=== PATIENT | male | born 1945 | race Caucasian/White ===

== ENCOUNTER 2023-08-08 13:33 | Inpatient (IN) | payer MEDICARE ==
[2023-08-09] MEDS ORDERED: HYDROcodone/Acetaminophen 10/325 mg Tablet PO PRN (19:28)
[2023-08-09] MEDS ORDERED: Albuterol 200 PUFF (6.7GM INHALER) INH PRN (19:28)
[2023-08-09] MEDS ORDERED: Loperamide HCl 2 MG CAP PO PRN (20:15)
[2023-08-09] MEDS ORDERED: Senokot S 8.6-50 MG TAB PO PRN (20:15)
[2023-08-09] MEDS ORDERED: Bisacodyl 10 MG SUPP PR PRN (20:15)
[2023-08-09] MEDS ORDERED: Ondansetron ODT 4 MG TAB SL PRN (20:15)
[2023-08-09] MEDS ORDERED: Bisacodyl 5 MG TAB PO PRN (20:15)
[2023-08-09] MEDS ORDERED: Acetaminophen 650 MG Suppository PR PRN (20:15)
[2023-08-09] MEDS ORDERED: Ondansetron PF 4 MG/2 ML Vial SLOW IVP PRN (20:15)
[2023-08-09] MEDS ORDERED: Calcium Carbonate 500 MG ChewTAB PO PRN (20:15)
[2023-08-09] MEDS ORDERED: Non-Formulary Item 1 EACH (Lovastatin [Lovastatin] 20 MG Tablet) PO SCH (21:00)
[2023-08-09] MEDS: Montelukast Sodium 10 mg Tablet PO SCH (22:14)
[2023-08-09] MEDS: Fish Oil 1,000 MG CAP PO SCH (22:14)
[2023-08-09] MEDS: Lidocaine 4% Patch TD SCH (22:15)
[2023-08-10] MEDS ORDERED: METFORMIN HCL 750 MG PO SCH (09:00)
[2023-08-10] MEDS ORDERED: Transdermal Patch Removal TOP SCH (09:00)
[2023-08-10] MEDS ORDERED: FLU VACC QS2023(65UP)/MF59C/PF 60 MCG/0.5 ML SYRINGE IM ONE (09:00)
[2023-08-10] MEDS: Fish Oil 1,000 MG CAP PO SCH ×2 (09:09→21:07)
[2023-08-10] MEDS: glipiZIDE 5 MG TAB PO SCH (09:09)
[2023-08-10] MEDS: Cholecalciferol 1,000 UNITS (25 MCG) TAB PO SCH (09:10)
[2023-08-10] MEDS: Tamsulosin HCl 0.4 MG CAP PO SCH (09:10)
[2023-08-10] MEDS: metFORMIN XR 500 MG ER.TAB PO SCH (09:10)
[2023-08-10] MEDS: Losartan Potassium 50 MG TAB PO SCH (09:10)
[2023-08-10] MEDS: Finasteride 5 MG TAB PO SCH (09:10)
[2023-08-10] MEDS: Atorvastatin Calcium 40 MG TAB PO SCH (09:10)
[2023-08-10] MEDS: Mometasone/Formoterol 200/5 60 PUFF INH SCH (09:11)
[2023-08-10] MEDS: HYDROcodone/Acetaminophen 5/325 mg Tablet PO PRN ×2 (14:26→21:06)
[2023-08-10] MEDS: Zolpidem Tartrate 5 MG TAB PO PRN (21:07)
[2023-08-10] MEDS: Montelukast Sodium 10 mg Tablet PO SCH (21:07)
[2023-08-10] MEDS: Lidocaine 4% Patch TD SCH (21:08)
[2023-08-11] MEDS: Mometasone/Formoterol 200/5 60 PUFF INH SCH (08:52)
[2023-08-11] MEDS: Tamsulosin HCl 0.4 MG CAP PO SCH (08:54)
[2023-08-11] MEDS: Losartan Potassium 50 MG TAB PO SCH (08:54)
[2023-08-11] MEDS: metFORMIN XR 500 MG ER.TAB PO SCH (08:54)
[2023-08-11] MEDS: Atorvastatin Calcium 40 MG TAB PO SCH (08:54)
[2023-08-11] MEDS: glipiZIDE 5 MG TAB PO SCH (08:54)
[2023-08-11] MEDS: Finasteride 5 MG TAB PO SCH (08:55)
[2023-08-11] MEDS: Fish Oil 1,000 MG CAP PO SCH ×2 (08:55→21:08)
[2023-08-11] MEDS: Cholecalciferol 1,000 UNITS (25 MCG) TAB PO SCH (08:55)
[2023-08-11] MEDS: Acetaminophen 325 MG TAB PO PRN (18:34)
[2023-08-11] MEDS: Cyclobenzaprine 10 MG TAB PO PRN (21:08)
[2023-08-11] MEDS: Montelukast Sodium 10 mg Tablet PO SCH (21:08)
[2023-08-11] MEDS: Zolpidem Tartrate 5 MG TAB PO PRN (21:08)
[2023-08-12] MEDS: Mometasone/Formoterol 200/5 60 PUFF INH SCH (08:43)
[2023-08-12] MEDS: metFORMIN XR 500 MG ER.TAB PO SCH (08:44)
[2023-08-12] MEDS: glipiZIDE 5 MG TAB PO SCH (08:44)
[2023-08-12] MEDS: Fish Oil 1,000 MG CAP PO SCH ×2 (08:44→20:49)
[2023-08-12] MEDS: Atorvastatin Calcium 40 MG TAB PO SCH (08:45)
[2023-08-12] MEDS: Losartan Potassium 50 MG TAB PO SCH (08:45)
[2023-08-12] MEDS: Cholecalciferol 1,000 UNITS (25 MCG) TAB PO SCH (08:45)
[2023-08-12] MEDS: Finasteride 5 MG TAB PO SCH (08:45)
[2023-08-12] MEDS: Tamsulosin HCl 0.4 MG CAP PO SCH (08:45)
[2023-08-12] MEDS: Montelukast Sodium 10 mg Tablet PO SCH (20:49)
[2023-08-12] MEDS: Cyclobenzaprine 10 MG TAB PO PRN (20:52)
[2023-08-12] MEDS: Zolpidem Tartrate 5 MG TAB PO PRN (20:52)
[2023-08-13] MEDS: Atorvastatin Calcium 40 MG TAB PO SCH ×2 (08:50→21:10)
[2023-08-13] MEDS: metFORMIN XR 500 MG ER.TAB PO SCH (09:23)
[2023-08-13] MEDS: glipiZIDE 5 MG TAB PO SCH (09:23)
[2023-08-13] MEDS: Fish Oil 1,000 MG CAP PO SCH ×2 (09:23→21:10)
[2023-08-13] MEDS: Finasteride 5 MG TAB PO SCH (09:23)
[2023-08-13] MEDS: Tamsulosin HCl 0.4 MG CAP PO SCH (09:23)
[2023-08-13] MEDS: Losartan Potassium 50 MG TAB PO SCH (09:23)
[2023-08-13] MEDS: Cholecalciferol 1,000 UNITS (25 MCG) TAB PO SCH (09:23)
[2023-08-13] MEDS: Mometasone/Formoterol 200/5 60 PUFF INH SCH (09:24)
[2023-08-13] MEDS: Acetaminophen 325 MG TAB PO PRN (11:34)
[2023-08-13] MEDS: HYDROcodone/Acetaminophen 5/325 mg Tablet PO PRN (14:36)
[2023-08-13] MEDS: Acetaminophen 500 MG TAB PO SCH (18:29)
[2023-08-13] MEDS: Montelukast Sodium 10 mg Tablet PO SCH (21:11)
[2023-08-14] MEDS: Acetaminophen 500 MG TAB PO SCH ×4 (00:05→17:28)
[2023-08-14] MEDS: glipiZIDE 5 MG TAB PO SCH (09:41)
[2023-08-14] MEDS: Losartan Potassium 50 MG TAB PO SCH (09:41)
[2023-08-14] MEDS: Cholecalciferol 1,000 UNITS (25 MCG) TAB PO SCH (09:41)
[2023-08-14] MEDS: Tamsulosin HCl 0.4 MG CAP PO SCH (09:41)
[2023-08-14] MEDS: Finasteride 5 MG TAB PO SCH (09:41)
[2023-08-14] MEDS: Fish Oil 1,000 MG CAP PO SCH ×2 (09:41→21:23)
[2023-08-14] MEDS: Mometasone/Formoterol 200/5 60 PUFF INH SCH (09:42)
[2023-08-14] MEDS: metFORMIN XR 500 MG ER.TAB PO SCH ×3 (09:42→21:23)
[2023-08-14] MEDS: Zolpidem Tartrate 5 MG TAB PO PRN (21:22)
[2023-08-14] MEDS: Atorvastatin Calcium 40 MG TAB PO SCH (21:23)
[2023-08-14] MEDS: Montelukast Sodium 10 mg Tablet PO SCH (21:23)
[2023-08-15] MEDS: Acetaminophen 500 MG TAB PO SCH ×5 (00:05→23:59)
[2023-08-15] MEDS: metFORMIN XR 500 MG ER.TAB PO SCH ×2 (08:50→21:24)
[2023-08-15] MEDS: Fish Oil 1,000 MG CAP PO SCH ×2 (08:50→21:23)
[2023-08-15] MEDS: glipiZIDE 5 MG TAB PO SCH (08:50)
[2023-08-15] MEDS: Finasteride 5 MG TAB PO SCH (08:51)
[2023-08-15] MEDS: Cholecalciferol 1,000 UNITS (25 MCG) TAB PO SCH (08:51)
[2023-08-15] MEDS: Losartan Potassium 50 MG TAB PO SCH (08:51)
[2023-08-15] MEDS: Tamsulosin HCl 0.4 MG CAP PO SCH (08:51)
[2023-08-15] MEDS: Mometasone/Formoterol 200/5 60 PUFF INH SCH (08:51)
[2023-08-15 11:21] LABS: Bilirubin Negative (Negative); Blood, Urine Moderate (Negative); Glucose, Urine (Dipstick) 100 mg/dL (Negative); Ketone, Urine Negative (Negative); Leukocyte Large (Negative); Nitrite Positive (Negative); Protein, Urine (Dipstick) 100 mg/dL (Neg-Trace); Urobilinogen 0.2 mg/dL (Less than 2); pH, Urine 5.5 (5.0-9.0)
[2023-08-15 11:25] LABS: Clarity Cloudy (Clear); Specific Gravity, Urine 1.031 (1.002-1.036)
[2023-08-15 11:26] LABS: Bacteria/HPF 2+ HPF (None Seen); CAUTI Indications for Culture Pelvic or flank pain; Squamous Epithelial 0-3 HPF (0-3); WBC/HPF Greater Than 50 HPF (0-3)
[2023-08-15 11:27] LABS: Urine Culture Reflex Yes Yes
[2023-08-15] MEDS: Zolpidem Tartrate 5 MG TAB PO PRN (21:23)
[2023-08-15] MEDS: Atorvastatin Calcium 40 MG TAB PO SCH (21:24)
[2023-08-15] MEDS: Montelukast Sodium 10 mg Tablet PO SCH (21:24)
[2023-08-16] MEDS: Acetaminophen 500 MG TAB PO SCH ×3 (06:08→17:39)
[2023-08-16] MEDS: metFORMIN XR 500 MG ER.TAB PO SCH ×2 (09:09→20:28)
[2023-08-16] MEDS: glipiZIDE 5 MG TAB PO SCH (09:09)
[2023-08-16] MEDS: Fish Oil 1,000 MG CAP PO SCH ×2 (09:09→20:28)
[2023-08-16] MEDS: Tamsulosin HCl 0.4 MG CAP PO SCH (09:10)
[2023-08-16] MEDS: Finasteride 5 MG TAB PO SCH (09:10)
[2023-08-16] MEDS: Cholecalciferol 1,000 UNITS (25 MCG) TAB PO SCH (09:10)
[2023-08-16] MEDS: Losartan Potassium 50 MG TAB PO SCH (09:10)
[2023-08-16] MEDS: Mometasone/Formoterol 200/5 60 PUFF INH SCH (09:18)
[2023-08-16] MEDS: Cyclobenzaprine 10 MG TAB PO PRN ×2 (09:22→22:27)
[2023-08-16] MEDS: Loperamide HCl 2 MG CAP PO PRN (10:17)
[2023-08-16] MEDS: Atorvastatin Calcium 40 MG TAB PO SCH (20:28)
[2023-08-16] MEDS: Montelukast Sodium 10 mg Tablet PO SCH (20:28)
[2023-08-16] MEDS: Zolpidem Tartrate 5 MG TAB PO PRN (22:27)
[2023-08-17] MEDS: Acetaminophen 500 MG TAB PO SCH ×5 (05:35→17:13)
[2023-08-17] MEDS: glipiZIDE 5 MG TAB PO SCH (09:39)
[2023-08-17] MEDS: Losartan Potassium 50 MG TAB PO SCH (09:39)
[2023-08-17] MEDS: Tamsulosin HCl 0.4 MG CAP PO SCH (09:39)
[2023-08-17] MEDS: Fish Oil 1,000 MG CAP PO SCH ×2 (09:39→21:12)
[2023-08-17] MEDS: Cholecalciferol 1,000 UNITS (25 MCG) TAB PO SCH (09:40)
[2023-08-17] MEDS: metFORMIN XR 500 MG ER.TAB PO SCH ×2 (09:40→21:13)
[2023-08-17] MEDS: Finasteride 5 MG TAB PO SCH (09:40)
[2023-08-17] MEDS: Mometasone/Formoterol 200/5 60 PUFF INH SCH (09:57)
[2023-08-17] MEDS: Cyclobenzaprine 10 MG TAB PO PRN (21:12)
[2023-08-17] MEDS: Zolpidem Tartrate 5 MG TAB PO PRN (21:12)
[2023-08-17] MEDS: Montelukast Sodium 10 mg Tablet PO SCH (21:12)
[2023-08-17] MEDS: Atorvastatin Calcium 40 MG TAB PO SCH (21:12)
[2023-08-17] MEDS: Sulfameth/Trimethoprim DS 800-160mg TAB PO SCH (21:13)
[2023-08-17] MEDS ORDERED: Nystatin Powder 15 GM BOT TOP PRN (21:57)
[2023-08-18] MEDS: Acetaminophen 500 MG TAB PO SCH ×4 (06:00→18:00)
[2023-08-18] MEDS: glipiZIDE 5 MG TAB PO SCH (09:50)
[2023-08-18] MEDS: metFORMIN XR 500 MG ER.TAB PO SCH ×2 (09:50→21:25)
[2023-08-18] MEDS: Cholecalciferol 1,000 UNITS (25 MCG) TAB PO SCH (09:50)
[2023-08-18] MEDS: Losartan Potassium 50 MG TAB PO SCH (09:50)
[2023-08-18] MEDS: Finasteride 5 MG TAB PO SCH (09:51)
[2023-08-18] MEDS: Sertraline 25 MG TAB PO SCH (09:51)
[2023-08-18] MEDS: Tamsulosin HCl 0.4 MG CAP PO SCH (09:51)
[2023-08-18] MEDS: Fish Oil 1,000 MG CAP PO SCH ×2 (09:51→21:25)
[2023-08-18] MEDS: Nystatin Powder 15 GM BOT TOP SCH ×2 (09:53→21:31)
[2023-08-18] MEDS: Sulfameth/Trimethoprim DS 800-160mg TAB PO SCH ×2 (09:53→21:25)
[2023-08-18] MEDS: Mometasone/Formoterol 200/5 60 PUFF INH SCH (10:19)
[2023-08-18] MEDS: Montelukast Sodium 10 mg Tablet PO SCH (21:25)
[2023-08-18] MEDS: Cyclobenzaprine 10 MG TAB PO PRN (21:25)
[2023-08-18] MEDS: Atorvastatin Calcium 40 MG TAB PO SCH (21:25)
[2023-08-19] MEDS: Acetaminophen 500 MG TAB PO SCH ×4 (00:25→17:43)
[2023-08-19] MEDS: Fish Oil 1,000 MG CAP PO SCH ×2 (09:58→21:25)
[2023-08-19] MEDS: Saccharomyces boulardii 250 MG CAP PO SCH (09:59)
[2023-08-19] MEDS: glipiZIDE 5 MG TAB PO SCH (09:59)
[2023-08-19] MEDS: metFORMIN XR 500 MG ER.TAB PO SCH ×2 (09:59→21:25)
[2023-08-19] MEDS: Tamsulosin HCl 0.4 MG CAP PO SCH (09:59)
[2023-08-19] MEDS: Cholecalciferol 1,000 UNITS (25 MCG) TAB PO SCH (09:59)
[2023-08-19] MEDS: Sulfameth/Trimethoprim DS 800-160mg TAB PO SCH ×2 (10:00→21:25)
[2023-08-19] MEDS: Finasteride 5 MG TAB PO SCH (10:00)
[2023-08-19] MEDS: Losartan Potassium 50 MG TAB PO SCH (10:00)
[2023-08-19] MEDS: Mometasone/Formoterol 200/5 60 PUFF INH SCH (10:00)
[2023-08-19] MEDS: Sertraline 25 MG TAB PO SCH (10:00)
[2023-08-19] MEDS: Nystatin Powder 15 GM BOT TOP SCH ×2 (10:01→21:31)
[2023-08-19] MEDS: Cyclobenzaprine 10 MG TAB PO PRN (21:25)
[2023-08-19] MEDS: Atorvastatin Calcium 40 MG TAB PO SCH (21:26)
[2023-08-19] MEDS: Montelukast Sodium 10 mg Tablet PO SCH (21:26)
[2023-08-20] MEDS: Acetaminophen 500 MG TAB PO SCH ×4 (05:31→17:27)
[2023-08-20] MEDS: Mometasone/Formoterol 200/5 60 PUFF INH SCH (09:36)
[2023-08-20] MEDS: metFORMIN XR 500 MG ER.TAB PO SCH ×2 (09:37→21:22)
[2023-08-20] MEDS: Fish Oil 1,000 MG CAP PO SCH ×2 (09:37→21:22)
[2023-08-20] MEDS: Saccharomyces boulardii 250 MG CAP PO SCH (09:37)
[2023-08-20] MEDS: Cholecalciferol 1,000 UNITS (25 MCG) TAB PO SCH (09:38)
[2023-08-20] MEDS: Tamsulosin HCl 0.4 MG CAP PO SCH (09:38)
[2023-08-20] MEDS: Sulfameth/Trimethoprim DS 800-160mg TAB PO SCH ×2 (09:38→21:22)
[2023-08-20] MEDS: Losartan Potassium 50 MG TAB PO SCH (09:38)
[2023-08-20] MEDS: Sertraline 25 MG TAB PO SCH (09:38)
[2023-08-20] MEDS: Finasteride 5 MG TAB PO SCH (09:38)
[2023-08-20] MEDS: glipiZIDE 5 MG TAB PO SCH (09:46)
[2023-08-20] MEDS: Nystatin Powder 15 GM BOT TOP SCH ×2 (13:03→21:23)
[2023-08-20] MEDS: Atorvastatin Calcium 40 MG TAB PO SCH (21:22)
[2023-08-20] MEDS: Montelukast Sodium 10 mg Tablet PO SCH (21:22)
[2023-08-20] MEDS: Cyclobenzaprine 10 MG TAB PO PRN (21:24)
[2023-08-20] MEDS: Melatonin 3 MG TAB PO SCH (22:00)
[2023-08-21] MEDS: Acetaminophen 500 MG TAB PO SCH ×4 (06:26→18:39)
[2023-08-21] MEDS: Losartan Potassium 50 MG TAB PO SCH (11:10)
[2023-08-21] MEDS: Finasteride 5 MG TAB PO SCH (11:10)
[2023-08-21] MEDS: Fish Oil 1,000 MG CAP PO SCH ×2 (11:11→21:43)
[2023-08-21] MEDS: glipiZIDE 5 MG TAB PO SCH (11:11)
[2023-08-21] MEDS: metFORMIN XR 500 MG ER.TAB PO SCH ×2 (11:11→21:43)
[2023-08-21] MEDS: Saccharomyces boulardii 250 MG CAP PO SCH (11:12)
[2023-08-21] MEDS: Cholecalciferol 1,000 UNITS (25 MCG) TAB PO SCH (11:12)
[2023-08-21] MEDS: Sulfameth/Trimethoprim DS 800-160mg TAB PO SCH ×2 (11:13→21:42)
[2023-08-21] MEDS: Tamsulosin HCl 0.4 MG CAP PO SCH (11:13)
[2023-08-21] MEDS: Sertraline 25 MG TAB PO SCH (11:13)
[2023-08-21] MEDS: Mometasone/Formoterol 200/5 60 PUFF INH SCH (11:14)
[2023-08-21] MEDS: Nystatin Powder 15 GM BOT TOP SCH ×2 (11:15→21:42)
[2023-08-21] MEDS: Melatonin 3 MG TAB PO SCH (21:44)
[2023-08-21] MEDS: Atorvastatin Calcium 40 MG TAB PO SCH (21:44)
[2023-08-21] MEDS: Montelukast Sodium 10 mg Tablet PO SCH (21:44)
[2023-08-22] MEDS: Acetaminophen 500 MG TAB PO SCH ×5 (00:05→23:47)
[2023-08-22] MEDS: Fish Oil 1,000 MG CAP PO SCH ×2 (10:06→21:15)
[2023-08-22] MEDS: Tamsulosin HCl 0.4 MG CAP PO SCH (10:06)
[2023-08-22] MEDS: metFORMIN XR 500 MG ER.TAB PO SCH ×2 (10:06→21:00)
[2023-08-22] MEDS: Cholecalciferol 1,000 UNITS (25 MCG) TAB PO SCH (10:06)
[2023-08-22] MEDS: Sertraline 25 MG TAB PO SCH (10:06)
[2023-08-22] MEDS: glipiZIDE 5 MG TAB PO SCH (10:06)
[2023-08-22] MEDS: Sulfameth/Trimethoprim DS 800-160mg TAB PO SCH ×2 (10:07→21:16)
[2023-08-22] MEDS: Losartan Potassium 50 MG TAB PO SCH (10:07)
[2023-08-22] MEDS: Saccharomyces boulardii 250 MG CAP PO SCH (10:07)
[2023-08-22] MEDS: Finasteride 5 MG TAB PO SCH (10:07)
[2023-08-22] MEDS: Nystatin Powder 15 GM BOT TOP SCH ×2 (10:08→21:18)
[2023-08-22] MEDS: Mometasone/Formoterol 200/5 60 PUFF INH SCH (10:16)
[2023-08-22] MEDS: Loperamide HCl 2 MG CAP PO PRN (18:04)
[2023-08-22] MEDS: Montelukast Sodium 10 mg Tablet PO SCH (21:16)
[2023-08-22] MEDS: Melatonin 3 MG TAB PO SCH (21:16)
[2023-08-22] MEDS: Atorvastatin Calcium 40 MG TAB PO SCH (21:17)
[2023-08-23] MEDS: Acetaminophen 500 MG TAB PO SCH ×3 (06:01→17:37)
[2023-08-23] MEDS: Mometasone/Formoterol 200/5 60 PUFF INH SCH (08:56)
[2023-08-23] MEDS: metFORMIN XR 500 MG ER.TAB PO SCH ×2 (08:58→21:24)
[2023-08-23] MEDS: Fish Oil 1,000 MG CAP PO SCH ×2 (08:58→21:24)
[2023-08-23] MEDS: glipiZIDE 5 MG TAB PO SCH (08:58)
[2023-08-23] MEDS: Losartan Potassium 50 MG TAB PO SCH (09:00)
[2023-08-23] MEDS: Saccharomyces boulardii 250 MG CAP PO SCH (09:00)
[2023-08-23] MEDS: Sertraline 25 MG TAB PO SCH (09:00)
[2023-08-23] MEDS: Tamsulosin HCl 0.4 MG CAP PO SCH (09:00)
[2023-08-23] MEDS: Finasteride 5 MG TAB PO SCH (09:00)
[2023-08-23] MEDS: Cholecalciferol 1,000 UNITS (25 MCG) TAB PO SCH (09:00)
[2023-08-23] MEDS: Sulfameth/Trimethoprim DS 800-160mg TAB PO SCH (09:00)
[2023-08-23] MEDS: Nystatin Powder 15 GM BOT TOP SCH ×2 (09:01→21:32)
[2023-08-23] MEDS: diphenhydrAMINE 25 MG CAP PO PRN (18:52)
[2023-08-23] MEDS: Montelukast Sodium 10 mg Tablet PO SCH (21:24)
[2023-08-23] MEDS: Atorvastatin Calcium 40 MG TAB PO SCH (21:25)
[2023-08-23] MEDS: Melatonin 3 MG TAB PO SCH (21:25)
[2023-08-24] MEDS: Acetaminophen 500 MG TAB PO SCH ×4 (00:16→18:15)
[2023-08-24] MEDS: diphenhydrAMINE 25 MG CAP PO PRN ×4 (00:16→19:49)
[2023-08-24] MEDS: metFORMIN XR 500 MG ER.TAB PO SCH ×2 (09:17→21:21)
[2023-08-24] MEDS: Fish Oil 1,000 MG CAP PO SCH ×2 (09:17→21:21)
[2023-08-24] MEDS: glipiZIDE 5 MG TAB PO SCH (09:17)
[2023-08-24] MEDS: Sertraline 25 MG TAB PO SCH (09:18)
[2023-08-24] MEDS: Finasteride 5 MG TAB PO SCH (09:18)
[2023-08-24] MEDS: Tamsulosin HCl 0.4 MG CAP PO SCH (09:18)
[2023-08-24] MEDS: Saccharomyces boulardii 250 MG CAP PO SCH (09:18)
[2023-08-24] MEDS: Mometasone/Formoterol 200/5 60 PUFF INH SCH (09:19)
[2023-08-24] MEDS: Losartan Potassium 50 MG TAB PO SCH (09:19)
[2023-08-24] MEDS: Cholecalciferol 1,000 UNITS (25 MCG) TAB PO SCH (09:19)
[2023-08-24] MEDS: Nystatin Powder 15 GM BOT TOP SCH ×2 (09:57→19:49)
[2023-08-24] MEDS: Montelukast Sodium 10 mg Tablet PO SCH (21:22)
[2023-08-24] MEDS: Atorvastatin Calcium 40 MG TAB PO SCH (21:22)
[2023-08-24] MEDS: Melatonin 3 MG TAB PO SCH (21:22)
[2023-08-25] MEDS: Acetaminophen 500 MG TAB PO SCH ×4 (00:04→18:08)
[2023-08-25] MEDS: Mometasone/Formoterol 200/5 60 PUFF INH SCH (08:37)
[2023-08-25] MEDS: metFORMIN XR 500 MG ER.TAB PO SCH ×2 (08:39→21:00)
[2023-08-25] MEDS: glipiZIDE 5 MG TAB PO SCH (08:40)
[2023-08-25] MEDS: Fish Oil 1,000 MG CAP PO SCH ×2 (08:40→21:00)
[2023-08-25] MEDS: Saccharomyces boulardii 250 MG CAP PO SCH (08:42)
[2023-08-25] MEDS: Nystatin Powder 15 GM BOT TOP SCH ×2 (08:42→21:01)
[2023-08-25] MEDS: Cholecalciferol 1,000 UNITS (25 MCG) TAB PO SCH (08:43)
[2023-08-25] MEDS: Sertraline 25 MG TAB PO SCH (08:43)
[2023-08-25] MEDS: Tamsulosin HCl 0.4 MG CAP PO SCH (08:43)
[2023-08-25] MEDS: Losartan Potassium 50 MG TAB PO SCH (08:43)
[2023-08-25] MEDS: Finasteride 5 MG TAB PO SCH (08:43)
[2023-08-25] MEDS: Loperamide HCl 2 MG CAP PO PRN (18:08)
[2023-08-25] MEDS: Montelukast Sodium 10 mg Tablet PO SCH (21:01)
[2023-08-25] MEDS: Melatonin 3 MG TAB PO SCH (21:01)
[2023-08-25] MEDS: Atorvastatin Calcium 40 MG TAB PO SCH (21:01)
[2023-08-26] MEDS: Acetaminophen 500 MG TAB PO SCH ×4 (00:01→17:50)
[2023-08-26] MEDS: Mometasone/Formoterol 200/5 60 PUFF INH SCH (08:33)
[2023-08-26] MEDS: metFORMIN XR 500 MG ER.TAB PO SCH ×2 (08:35→20:57)
[2023-08-26] MEDS: glipiZIDE 5 MG TAB PO SCH (08:35)
[2023-08-26] MEDS: Fish Oil 1,000 MG CAP PO SCH ×2 (08:36→20:57)
[2023-08-26] MEDS: Saccharomyces boulardii 250 MG CAP PO SCH (08:36)
[2023-08-26] MEDS: Tamsulosin HCl 0.4 MG CAP PO SCH (08:38)
[2023-08-26] MEDS: Sertraline 25 MG TAB PO SCH (08:38)
[2023-08-26] MEDS: Cholecalciferol 1,000 UNITS (25 MCG) TAB PO SCH (08:38)
[2023-08-26] MEDS: Losartan Potassium 50 MG TAB PO SCH (08:38)
[2023-08-26] MEDS: Nystatin Powder 15 GM BOT TOP SCH ×2 (08:39→20:58)
[2023-08-26] MEDS: Finasteride 5 MG TAB PO SCH (08:39)
[2023-08-26] MEDS: Loperamide HCl 2 MG CAP PO PRN ×2 (15:30→21:37)
[2023-08-26] MEDS: Melatonin 3 MG TAB PO SCH (20:57)
[2023-08-26] MEDS: Atorvastatin Calcium 40 MG TAB PO SCH (20:58)
[2023-08-26] MEDS: Montelukast Sodium 10 mg Tablet PO SCH (20:58)
[2023-08-27] MEDS: Acetaminophen 500 MG TAB PO SCH ×4 (00:13→17:30)
[2023-08-27] MEDS: Nystatin Powder 15 GM BOT TOP SCH ×2 (09:00→21:14)
[2023-08-27] MEDS: Mometasone/Formoterol 200/5 60 PUFF INH SCH (09:08)
[2023-08-27] MEDS: Fish Oil 1,000 MG CAP PO SCH ×2 (09:08→21:12)
[2023-08-27] MEDS: glipiZIDE 5 MG TAB PO SCH (09:09)
[2023-08-27] MEDS: Finasteride 5 MG TAB PO SCH (09:09)
[2023-08-27] MEDS: Sertraline 25 MG TAB PO SCH (09:09)
[2023-08-27] MEDS: Cholecalciferol 1,000 UNITS (25 MCG) TAB PO SCH (09:09)
[2023-08-27] MEDS: Losartan Potassium 50 MG TAB PO SCH (09:09)
[2023-08-27] MEDS: Saccharomyces boulardii 250 MG CAP PO SCH (09:09)
[2023-08-27] MEDS: Tamsulosin HCl 0.4 MG CAP PO SCH (09:10)
[2023-08-27] MEDS: metFORMIN XR 500 MG ER.TAB PO SCH ×2 (09:10→21:12)
[2023-08-27 12:35] VITALS: BMI 25.7
[2023-08-27] MEDS: Montelukast Sodium 10 mg Tablet PO SCH (21:13)
[2023-08-27] MEDS: Melatonin 3 MG TAB PO SCH (21:13)
[2023-08-27] MEDS: Atorvastatin Calcium 40 MG TAB PO SCH (21:14)
[2023-08-28] MEDS: Acetaminophen 500 MG TAB PO SCH ×4 (00:12→18:00)
[2023-08-28] MEDS: Fish Oil 1,000 MG CAP PO SCH ×2 (09:42→21:36)
[2023-08-28] MEDS: Sertraline 25 MG TAB PO SCH (09:43)
[2023-08-28] MEDS: Tamsulosin HCl 0.4 MG CAP PO SCH (09:43)
[2023-08-28] MEDS: Losartan Potassium 50 MG TAB PO SCH (09:43)
[2023-08-28] MEDS: glipiZIDE 5 MG TAB PO SCH (09:43)
[2023-08-28] MEDS: metFORMIN XR 500 MG ER.TAB PO SCH ×2 (09:43→21:36)
[2023-08-28] MEDS: Finasteride 5 MG TAB PO SCH (09:43)
[2023-08-28] MEDS: Saccharomyces boulardii 250 MG CAP PO SCH (09:43)
[2023-08-28] MEDS: Cholecalciferol 1,000 UNITS (25 MCG) TAB PO SCH (09:44)
[2023-08-28] MEDS: Mometasone/Formoterol 200/5 60 PUFF INH SCH (09:45)
[2023-08-28] MEDS: Nystatin Powder 15 GM BOT TOP SCH ×2 (09:45→21:38)
[2023-08-28] MEDS: Atorvastatin Calcium 40 MG TAB PO SCH (21:37)
[2023-08-28] MEDS: Melatonin 3 MG TAB PO SCH (21:37)
[2023-08-28] MEDS: Montelukast Sodium 10 mg Tablet PO SCH (21:37)
[2023-08-29] MEDS: Acetaminophen 500 MG TAB PO SCH ×3 (01:07→12:12)
[2023-08-29 05:33] VITALS: BP 151/71; TEMP 98
[2023-08-29] MEDS: Loperamide HCl 2 MG CAP PO PRN (08:48)
[2023-08-29] MEDS: metFORMIN XR 500 MG ER.TAB PO SCH (08:49)
[2023-08-29] MEDS: Nystatin Powder 15 GM BOT TOP SCH (08:49)
[2023-08-29] MEDS: glipiZIDE 5 MG TAB PO SCH (08:50)
[2023-08-29] MEDS: Saccharomyces boulardii 250 MG CAP PO SCH (08:50)
[2023-08-29] MEDS: Finasteride 5 MG TAB PO SCH (08:50)
[2023-08-29] MEDS: Sertraline 25 MG TAB PO SCH (08:51)
[2023-08-29] MEDS: Fish Oil 1,000 MG CAP PO SCH (08:51)
[2023-08-29] MEDS: Cholecalciferol 1,000 UNITS (25 MCG) TAB PO SCH (08:51)
[2023-08-29] MEDS: Losartan Potassium 50 MG TAB PO SCH (08:51)
[2023-08-29] MEDS: Tamsulosin HCl 0.4 MG CAP PO SCH (08:51)
[2023-08-29] MEDS: Mometasone/Formoterol 200/5 60 PUFF INH SCH (08:51)
== END 2023-08-29 12:55 | disposition home or self-care (01) | DRG 57 ==
LOC: BURMED 08-09 18:00
PROVIDERS: ADMIT Family Medicine; ATTEND Family Medicine
DX: I69.341 Monoplegia of lower limb following cerebral infarction affecting right dominant side (principal); N39.0 Urinary tract infection, site not specified; R26.89 Other abnormalities of gait and mobility; E11.9 Type 2 diabetes mellitus without complications; I10 Essential (primary) hypertension; E78.5 Hyperlipidemia, unspecified; J45.909 Unspecified asthma, uncomplicated; F32.A Depression, unspecified; N40.1 Benign prostatic hyperplasia with lower urinary tract symptoms; T36.8X5A Adverse effect of other systemic antibiotics, initial encounter; R33.8 Other retention of urine; Z86.718 Personal history of other venous thrombosis and embolism; Z79.51 Long term (current) use of inhaled steroids; Z79.899 Other long term (current) drug therapy; Z79.84 Long term (current) use of oral hypoglycemic drugs; Z79.82 Long term (current) use of aspirin; Z98.890 Other specified postprocedural states; Z87.891 Personal history of nicotine dependence; Z88.2 Allergy status to sulfonamides; Z88.8 Allergy status to other drugs, medicaments and biological substances; Z88.1 Allergy status to other antibiotic agents
CPT/HCPCS: 36416; 81001; 87077; 87086; 87186; 90471; 90694; 94664; G0008; Q0162